=== PATIENT | male | born 1955 | race Caucasian/White ===

== ENCOUNTER 2020-01-02 09:34 | Outpatient (CLI) | payer MEDICARE, OTHER, SELFPAY ==
[2020-01-02 09:48] VITALS: BP 146/76; PULSE 68; RESP 17; TEMP 36.7; O2SAT 98
[2020-01-02] MEDS: Lactated Ringers 1,000 ML 80 ML IV (10:48)
[2020-01-02] MEDS: fentaNYL 100 MCG/2 ML VIAL IVP (10:48)
[2020-01-02] MEDS: Midazolam 2 MG/2 ML VIAL IVP (10:49)
[2020-01-02 11:05] VITALS: BP 122/64; PULSE 66; RESP 15; O2SAT 100
--- NOTE | 2020-01-02 11:10 | DI.RAD_ITS ---
EXAM: XR PAIN CLINIC FLUORO JOINT IN CLINICAL HISTORY: Dx: Knee Osteoarthritis TECHNIQUE: 2D and realtime digital imaging was performed. CONTRAST MATERIAL: Refer to procedure report. COMPARISON: No exams were available for comparison FINDINGS: Fluoroscopy was provided for Dr. Valladares during the performance of a left genicular radiofrequency ablati on. Please refer to the procedure report for complete details. Fluoro time: 29.8 seconds IMPRESSION:
[2020-01-02] MEDS: Bupivacaine 0.5% Pres-Free 10 ML VIAL IJ (11:27)
[2020-01-02] MEDS: Lidocaine 2% Pres-Free 5 ML VIAL IJ (11:29)
[2020-01-02] MEDS: Lidocaine 1% Pres-Free 5 ML VIAL IJ (11:30)
--- NOTE | 2020-01-02 12:19 | PDOC.PAIN ---
Pain Clinic Procedure Note Procedure Note Procedure Note: [Right/Left] Knee Radiofrequency with Coolief Machine PROCEDURE NOTE Date of Service: January 02, 2020 Patient: Ishmael Manning Provider: Gilbert Valladares MD Pre Operative Diagnosis: osteoarthritis of left knee Post Operative Diagnosis: same as above PROCEDURE: 1. Superolateral genicular branch from the vastus lateralis 2. Superomedial genicular branch from the vastus medialis 3. Inferomedial genicular branch from the saphenous nerve Ishmael Manning was brought into brought to the procedure room and placed on the exam table in a comfortable supine position. The place for needle placement was obtained by manual palpation with radiographic confirmation. The sterile field was prepared by chloroprep and sterile drapes. Local anesthesia superficial and deep was provided by local infiltration of 1% lidocaine. A 17g 50mm radiofrequency introducer needle with a 4mm active tip was placed overlying the left knee joint and using fluoroscopic guidance the needle was advanced to a bony endpoint on the superiolateral portion of the femoral condyle of the left. A second needle was advanced to a bony endpoint on the superiomedial portion of the femoral condyle. A third needle was then placed over the inferiomedial portion of the tibial condyle until a bony endpoint was met. Attempted aspiration yielded no blood. Lateral x-ray views showed all the needles at 50% depth of the femur and tibia. Motor stimulation was tested ad 2.0 volts with no leg movement. Images were saved in AP and lateral. A solution of 0.5% Bupivocaine was slowly injected. Then a radiofrequency ablation of each of the geniculate nerves were done at 80 degrees Celsius for 2 minutes and 30 seconds each. The needles were withdrawn. POST PROCEDURE EVALUATION: IMPRESSION: 1. Summary of procedure. patient tolerated procedure well without complications 2. Received 1mg of IV versed and 25mcg of IV fentanly Follow up plans and appointments were discussed with the Ishmael . Post procedure instruction was given as documented in nursing documentation and having met discharge criteria, [facility] was [facility]. COMMENTS: No complications. F/U with our office as needed. I personally performed this entire procedure. Gilbert Valladares MD Attending Physician
== END 2020-01-02 09:54 ==
PROVIDERS: PCP Family Medicine; Visit Provider Internal Medicine
DX: M25.562 Pain in left knee (principal); M17.12 Unilateral primary osteoarthritis, left knee
CPT/HCPCS: 64624; 77002; J2250; J3010